=== PATIENT | male | born 1980 | race African-American/Black ===

== ENCOUNTER 2018-08-29 10:35 | Inpatient (IN) ==
[2018-08-29 11:28] LABS: Basophils % 0.2 % (0.0-0.8); Eosinophils # 0.1 10*3/uL (0.0-0.87); Eosinophils % 1.3 % (0.00-10.9); Hematocrit 44.5 VOL% (42.0-52.0); Hemoglobin 15.1 GM/DL (14.0-18.0); Immature Granulocytes % 0.2 %; Immature Granulocytes Absolute 0.02 #; Lymphocytes # 2.1 10*3/uL (1.4-4.0); Lymphocytes % 25.9 % (21.2-54.2); Mean Corpuscular HGB Conc 33.9 GM/DL (32-36); Mean Corpuscular Volume 91.8 FL (87-102); Mean Platelet Volume 11.1 FL (9.6-12.0); Neutrophils % 63.4 % (38.7-73.9); Platelet Count 170 T/CUMM (130-400); Red Blood Count 4.85 MC/CUMM (3.8-5.5); Red Cell Distribution Width 13.9 % (9.3-17.3); White Blood Count 8.2 T/CUMM (4-12)
[2018-08-29 11:40] LABS: Apearance,Urine CLEAR (Clear); Bilirubin,Urine Negative (Negative); Blood, Urine Negative (Negative); Glucose,Urine (UA) Negative (Negative); Ketones,Urine Negative (Negative); Mucus,Urine Moderate /LPF (Occasional); Nitrite,Urine Negative (Negative); Protein,Urine Negative; RBC,Urine 5 /HPF (0-4); Squamous Epithelial Cell,Urine Occasional /HPF (0-10); Urine Color Yellow (Yellow); Urine Specific Gravity 1.018 (1.001-1.035); Urine Urobilinogen < 2.0 EU/DL (0.2-1.0); WBC,Urine 35 /HPF (0-6)
[2018-08-29 11:47] LABS: Albumin 3.9 G/DL (3.4-5.0); Bilirubin,Total 0.7 MG/DL (0.2-1.0); Calcium 9.1 MG/DL (8.5-10.1); Osmolality,Calculated 279.4 MOS/KG (273-304); Total Protein 8.3 G/DL (6.4-8.3)
[2018-08-29] MEDS ORDERED: ONDANSETRON 4 MG/2 ML VIAL IV STA (11:48)
[2018-08-29] MEDS ORDERED: MORPHINE 4 MG/1 ML VIAL IV STA (11:48)
[2018-08-29 11:57] LABS: Barbiturates Screen,Urine Negative (Negative); Benzodiazepines Screen,Urine Negative (Negative); Cannabinoid Screen,Urine Negative (Negative); Opiate Screen,Urine Negative (Negative); Phencyclidine Screen,Urine Negative (Negative)
[2018-08-29] MEDS ORDERED: LACTATED RINGERS 1,000 ML IV ONE (12:44)
[2018-08-29] MEDS ORDERED: PIPERACILLIN/TAZOBACTAM 3,375 MG in SODIUM CHLORIDE 0.9% 100 ML IV STA (12:45)
[2018-08-29] MEDS ORDERED: HYDROmorphone 2 MG/1 ML VIAL IV PRN (17:30)
[2018-08-29] MEDS ORDERED: PROMETHAZINE 25 MG/1 ML VIAL IM PRN ×2 (17:30→20:59)
[2018-08-29] MEDS ORDERED: ACETAMINOPHEN 325 MG TABLET PO PRN ×2 (17:30→21:04)
[2018-08-29] MEDS ORDERED: LACTATED RINGERS 1,000 ML IV SCH (17:30)
[2018-08-29] MEDS ORDERED: ONDANSETRON 4 MG/2 ML VIAL IV PRN ×2 (17:30→21:02)
[2018-08-29] MEDS ORDERED: PIPERACILLIN/TAZOBACTAM 3,375 MG in SODIUM CHLORIDE 0.9% 100 ML IV SCH (21:00)
[2018-08-29] MEDS: LACTATED RINGERS 1,000 ML IV SCH (23:20)
[2018-08-29] MEDS: PIPERACILLIN/TAZOBACTAM 3,375 MG in SODIUM CHLORIDE 0.9% 100 ML IV SCH (23:21)
[2018-08-30 05:19] LABS: Basophils % 0.2 % (0.0-0.8); Eosinophils # 0.2 10*3/uL (0.0-0.87); Eosinophils % 2.4 % (0.00-10.9); Hematocrit 41.2 VOL% (42.0-52.0); Hemoglobin 13.8 GM/DL (14.0-18.0); Immature Granulocytes % 0.2 %; Immature Granulocytes Absolute 0.01 #; Lymphocytes % 30.8 % (21.2-54.2); Mean Corpuscular HGB Conc 33.5 GM/DL (32-36); Mean Platelet Volume 11.1 FL (9.6-12.0); Monocytes % 10.4 % (1.7-12.7); Platelet Count 149 T/CUMM (130-400); Red Blood Count 4.43 MC/CUMM (3.8-5.5); Red Cell Distribution Width 14.1 % (9.3-17.3); White Blood Count 6.4 T/CUMM (4-12)
[2018-08-30 06:01] LABS: Albumin 3.2 G/DL (3.4-5.0); Bilirubin,Total 1.3 MG/DL (0.2-1.0); Calcium 8.9 MG/DL (8.5-10.1); Osmolality,Calculated 279.3 MOS/KG (273-304)
[2018-08-30] MEDS: PIPERACILLIN/TAZOBACTAM 3,375 MG in SODIUM CHLORIDE 0.9% 100 ML IV SCH ×3 (06:22→23:04)
[2018-08-30] MEDS: PANTOPRAZOLE 40 MG TABLET PO SCH (08:46)
[2018-08-30] MEDS ORDERED: PANTOPRAZOLE 40 MG TABLET PO SCH (09:00)
[2018-08-30] MEDS ORDERED: LIDOCAINE 1%/EPI INJ 20 ML VIAL ONE (09:36)
[2018-08-30] MEDS ORDERED: BUPIVACAINE MPF 0.25% 30 ML VIAL ONE (09:36)
[2018-08-30] MEDS ORDERED: ONDANSETRON 4 MG/2 ML VIAL IV PRN (10:32)
[2018-08-30] MEDS ORDERED: SEVOFLURANE 1 UNIT/15 MINUTE INH ONE (10:54)
[2018-08-30] MEDS ORDERED: PROPOFOL 200 MG/20 ML VIAL IV ONE (10:54)
[2018-08-30] MEDS ORDERED: ROCURONIUM 100 MG/10 ML VIAL IV ONE (10:55)
[2018-08-30] MEDS ORDERED: MIDAZOLAM 2 MG/2 ML VIAL ONE (10:55)
[2018-08-30] MEDS ORDERED: GLYCOPYRROLATE 0.4 MG/2 ML VIAL ONE ×2 (10:55)
[2018-08-30] MEDS ORDERED: ACETAMINOPHEN 1,000 MG/100 ML VIAL IV ONE (10:55)
[2018-08-30] MEDS ORDERED: NEOSTIGMINE 10 MG/10 ML VIAL ONE (10:55)
[2018-08-30] MEDS ORDERED: ONDANSETRON 4 MG/2 ML VIAL ONE ×2 (10:55→11:01)
[2018-08-30] MEDS ORDERED: LACTATED RINGERS 1,000 ML IV ONE (10:55)
[2018-08-30] MEDS ORDERED: HYDROmorphone 2 MG/1 ML VIAL ONE (11:01)
[2018-08-30] MEDS: HYDROmorphone 2 MG/1 ML VIAL IV PRN ×6 (11:05→21:17)
[2018-08-30] MEDS: diphenhydrAMINE 50 MG/1 ML VIAL IV PRN (15:43)
[2018-08-30] MEDS: LACTATED RINGERS 1,000 ML IV SCH (23:06)
[2018-08-31] MEDS: HYDROmorphone 2 MG/1 ML VIAL IV PRN (03:16)
[2018-08-31] MEDS: diphenhydrAMINE 50 MG/1 ML VIAL IV PRN (03:30)
[2018-08-31] MEDS: LACTATED RINGERS 1,000 ML IV SCH (05:00)
[2018-08-31] MEDS: PIPERACILLIN/TAZOBACTAM 3,375 MG in SODIUM CHLORIDE 0.9% 100 ML IV SCH (06:45)
[2018-08-31] MEDS: PANTOPRAZOLE 40 MG TABLET PO SCH (08:10)
[2018-08-31 12:16] VITALS: BP 160/86
== END 2018-08-31 12:29 | disposition home or self-care (01) | DRG 419 ==
LOC: N.ED 10:35 → N.EDINP 17:30 → N.3E 19:01
PROVIDERS: ADMIT Surgery; ATTEND Surgery
PROC: LAPCHOL (2018-08-30 09:35)